=== PATIENT | male | born 1970 | race Caucasian/White ===

== ENCOUNTER → 2017-02-24 | Outpatient (CLI) | payer OTHER ==
[2017-02-24 13:33] LABS: BLOOD UREA NITROGEN 18 mg/dl (7-18); BUN/CREATININE RATIO 20.9 (10-20); CALCIUM 8.7 mg/dl (8.5-10.1); CARBON DIOXIDE 24 mmol/L (21-32); CHLORIDE 106 mmol/L (98-107); CREATININE 0.85 mg/dl (0.60-1.40); GLUCOSE 146 mg/dl (70-99); SODIUM 139 mmol/L (136-145)
[2017-02-24 14:41] LABS: ESTIMATED AVERAGE GLUCOSE 171 mg/dl; HA1C FLAG Normal (Normal)
== END | disposition home or self-care (01) ==
LOC: C.LAB1850 12:16
PROVIDERS: ATTEND Family Medicine
DX: E11.9 Type 2 diabetes mellitus without complications (principal)

== ENCOUNTER → 2017-10-01 | Outpatient (CLI) | payer OTHER ==
[2017-10-01 13:51] LABS: HEMOGLOBIN A1C 7.8 % (4.5-5.6)
[2017-10-01 15:47] LABS: ALT/SGPT 33 U/L (12-78); BLOOD UREA NITROGEN 15 mg/dl (7-18); CARBON DIOXIDE 25 mmol/L (21-32); CREATININE 0.93 mg/dl (0.60-1.40); GLUCOSE 147 mg/dl (70-99); POTASSIUM 3.9 mmol/L (3.5-5.1); SODIUM 136 mmol/L (136-145)
[2017-10-01 15:50] LABS: CHOLESTEROL 203 mg/dl (0-200); LDL CHOLESTEROL CALCULATED 144 mg/dl
== END | disposition home or self-care (01) ==
LOC: C.LABBC 11:38
PROVIDERS: ATTEND Family Medicine
DX: E11.9 Type 2 diabetes mellitus without complications (principal)

== ENCOUNTER 2021-05-29 08:52 | Inpatient (IN) ==
[2021-05-29] MEDS ORDERED: ALBUT/IPRATROP 3MG/0.5MG NEB 3 ML VIAL INH STA (11:13)
--- NOTE | 2021-05-29 11:23 | Emergency Department Note ---
Impression & Plan Hypoxia, SOB (shortness of breath), Pneumonia, COVID-19 ED Provider Note NAME: LOUIE WEST AGE: 51 SEX: M : 1970 ARRIVES VIA: Walk-In INFORMANT: [Patient] ED PROVIDER(S): [Rahul Hill MD] CHIEF COMPLAINT: Shortness of breath HISTORY OF PRESENT ILLNESS: The patient is a 51-year-old male who has felt short of breath for 4 days. Today, he felt even worse. He cannot sleep he feels so winded. He is weak. He has developed a low-grade fever. He has had some diarrhea although, he took a stool softener and the diarrhea started after. There has been no vomiting, no urinary complaints. The patient states that he was placed on oxygen when he arrived and he feels better. The patient is not vaccinated against COVID-19. He has no known Covid exposures . He states he has no history of heart or lung disease. REVIEW OF SYSTEMS: See HPI for pertinent positives and negatives. A total of ten systems were reviewed and were otherwise negative. PMHx/PSHx: See Below SOCIAL HISTORY: See Below. PHYSICAL EXAM: GENERAL: Patient is in no acute distress. HEENT: No acute trauma, normocephalic atraumatic, mucous membranes moist, no nasal congestion, no scleral icterus. NECK: No stridor, no adenopathy, no meningismus, trachea is midline. LUNGS: Crackles at both lung bases, no obvious respiratory distress. No wheezing. HEART: Without murmurs gallops or rubs, regular rate and rhythm. ABDOMEN: Soft, nontender, bowel sounds positive, no hernias, no peritonitis. EXTREMITIES: No cyanosis or edema, full range of motion of all the joints with out pain or difficulty, no signs for acute trauma. NEUROLOGIC: Oriented x 3, no acute motor or sensory deficits, no focal weakness. SKIN: No rash, no jaundice, no diaphoresis. DIFFERENTIAL DIAGNOSIS: Reactive airway disease, pneumonia, pneumothorax, COPD, COVID-19, CHF, infec tion, cardiac ischemia, pulmonary embolism, bronchitis, musculoskeletal, gastrointestinal, as well as other pathologies. EMERGENCY DEPARTMENT COURSE/PROCEDURES: ECG: Indication was shortness of breath. The ECG shows a normal sinus rhythm with a rate of 95. There is an incomplete right bundle branch block. There is some nonspecific ST change. No ST elevation, no PVCs. QTC was 482. Continuous Cardiac Monitoring: An order was placed for continuous cardiac monitoring. The monitor shows a rate of 84 with normal sinus rhythm. Critical Care Note: I have personally spent 48 minutes of critical care time in the direct management of this patient. This includes bedside care, interpretation of diagnostic studies, and testing, discussion with consultants, patient, and family members, and other required patient management activities. This 48 minutes is in excess of all separately billable procedures. MEDICAL DECISION MAKING: There is no leukocytosis or anemia. There is a normal platelet count. No coagulopathy. Sodium and potassium were both slightly low. No kidney failure. Lactic acid level was not elevated making severe sepsis less likely. No concerning liver enzyme elevation. BNP was not elevated. ECG shows a sinus rhythm, no acute ischemia. Cardiac enzyme testing x1 is not consistent with acute cardiac injury. Covid test returned positive. Chest film shows a bilateral pneumonia consistent with a viral process. The patient was hypoxic and short of breath. He was placed on oxygen and this did increase his pulse ox. The patient was given a DuoNeb, IV Decadron. He is currently resting comfortably. The patient has hypoxia. He has Covid pneumonia. Given his oxygen requirement, a hospital stay is warranted. I spoke to the patient and case management. The on-call hospitalist has been consulted. Past Med/Surg History Medical History Diabetes mellitus, type 2 NIDDM DM2 (diabetes mellitus, type 2) Hyperlipidemia Hypertension Obesity Umbilical hernia, incarcerated Surgical History H/O umbilical hernia repair (08/24/19) Open Umbilical Hernia Repair - Dr. Trinh 08/24/19 No history of previous surgery Family History Mother Diabetes Hypertension Family history of reaction to anesthesia 20 YRS AGO IN [facility]-MOTHER HAD GB SURGERY-DID NOT SURVIVE-NO OTHER INFORMATION PER PT/SPOUSE-PT HAS NO PREVIOUS SURGERY/ANESTHESIA Father Heart disease Other Family history unknown Social History Smoking Status: Never smoker Second Hand Exposure: No; Hx Alcohol Use: No Hx Substance Use: No Preferred Language: Irish Communication Ability: Impaired Visual Impairment: No Limitations Hearing Ability: Normal Auto Washer Required: Yes and No Beliefs That Will Affect Care: None marital status: Current Living Situation: Spouse current occupational status: employed current occupation: construction Feels Safe at Home: Yes Childhood Exposure to Second-Hand Smoke: No Dental Care, Regularly: Yes Physical Activity Frequency: Daily Seatbelt Use: always Sunscreen Use: No Assistive Devices: None Allergies Allergies Allergy/AdvReac Type Severity Reaction Status Date / Time acetaminophen AdvReac Unknown SOB Verified 05/29/21 11:39 Home Meds Home Medications Medication Instructions Recorded Confirmed acetaminophen 500 mg tablet 500 mg PO Q6H PRN 05/29/21 05/29/21 (Tylenol Extra Strength) ascorbic acid (vitamin C) 250 mg 0 mg PO DAILY 05/29/21 05/29/21 tablet (Vitamin C) multivitamin 1 tab PO DAILY 05/29/21 05/29/21 Previous Rx's Medication Instructions Recorded Diabetic Shoes #1 ea 08/29/19 blood sugar diagnostic (OneTouch #200 ea 06/12/20 Ultra Blue Test Strip) metformin 500 mg tablet,extended 500 mg PO QPM #30 tab 06/12/20 release 24 hr glipizide 10 mg tablet 10 mg PO DAILY #90 tab 07/12/20 simvastatin 20 mg tablet 20 mg PO QPM #90 tab 07/12/20 Results & Data (ED) Vital Signs Vital Signs - 24 hr 05/29/21 09:01 05/29/21 09:08 05/29/21 11:13 Temperature 36.6 C Temperature Source Oral Pulse Rate 99 H Pulse Rate [Right Finger] Pulse Rate from SpO2 Sensor Respiratory Rate 20 Respiratory Effort / Characteristics SOB on Exertion Blood Pressure 124/83 Blood Pressure Mean 96 Pulse Oximetry 90 89 L Oxygen Delivery Method Room Air Nasal Cannula Nasal Cannula Oxygen Flow Rate 2 2 Sepsis Recent Fever Within 48 Hours No Sepsis New/Unexplained Change in Mental Status No Sepsis Action Taken by Nursing No Action Required Fraction of Inspired Oxygen - Titration 2 Pulse Oximetry Post Tiitration 91 05/29/21 11:30 05/29/21 11:55 05/29/21 12:00 Temperature Temperature Source Pulse Rate 88 92 H Pulse Rate [Right Finger] 86 Pulse Rate from SpO2 Sensor 88 92 H Respiratory Rate 20 14 15 Respiratory Effort / Characteristics Non-Labored Spontaneous Blood Pressure 119/80 122/84 Blood Pressure Mean 93 96 Pulse Oximetry 93 94 95 Oxygen Delivery Method Nasal Cannula Oxygen Flow Rate 4 Sepsis Recent Fever Within 48 Hours Sepsis New/Unexplained Change in Mental Status Sepsis Action Taken by Nursing Fraction of Inspired Oxygen - Titration Pulse Oximetry Post Tiitration 05/29/21 12:30 05/29/21 13:00 05/29/21 13:30 Temperature Temperature Source Pulse Rate 87 83 84 Pulse Rate [Right Finger] Pulse Rate from SpO2 Sensor 88 84 84 Respiratory Rate 13 23 27 H Respiratory Effort / Characteristics Blood Pressure 114/76 112/79 124/85 Blood Pressure Mean 88 90 98 Pulse Oximetry 90 92 93 Oxygen Delivery Method Oxygen Flow Rate Sepsis Recent Fever Within 48 Hours Sepsis New/Unexplained Change in Mental Status Sepsis Action Taken by Nursing Fraction of Inspired Oxygen - Titration Pulse Oximetry Post Tiitration Home Medications Current Medication List: was personally reviewed by me Laboratory Data Attestation: I reviewed the patient's lab results. Result diagrams: 05/29/21 12:22 05/29/21 12:22 Lab Results 05/29/21 05/29/21 05/29/21 Range/Units 12:22 12:22 12:22 WBC 5.61 (4.8-10.8) K/uL RBC 5.23 (4.7-6.1) M/uL Hgb 15.4 (14.0-18.0) g/dL Hct 44.9 (42-52) % MCV 85.9 (80-100) fL MCH 29.4 (25-34) pg MCHC 34.3 (32-36) g/dL RDW Std Deviation 39.5 (36.4-46.3) fL RDW Coeff of Nabila 12.5 (11.5-14.5) % Plt Count 309 (130-400) K/uL MPV 9.3 (7.4-10.4) fL Immature Gran % (Auto) 0.2 % Neut % (Auto) 57.3 % Lymph % (Auto) 31.4 % [place] % (Auto) 10.9 % Eos % (Auto) 0.0 % Baso % (Auto) 0.2 % Neut # (Auto) 3.22 (1.4-6.5) K/uL Lymph # (Auto) 1.76 (1.2-3.4) K/uL [place] # (Auto) 0.61 H (0.11-0.59) K/uL Eos # (Auto) 0.00 (0-0.5) K/uL Baso # (Auto) 0.01 (0-0.2) K/uL Immature Gran # (Auto) 0.01 (0.00-0.02) K/uL PT 10.5 (9.0-12.0) Seconds INR 1.0 (0.9-1.1) APTT 29.6 (21.0-31.0) Seconds PTT Ratio 1.1 Sodium 133 L (136-145) mmol/L Potassium 3.4 L (3.5-5.1) mmol/L Chloride 98 (98-107) mmol/L Carbon Dioxide 27 (21-32) mmol/L Anion Gap 8.0 (3-11) BUN 9 (7-18) mg/dl Creatinine 0.89 (0.6-1.4) mg/dl Est Cr Clr Drug Dosing 121.6 ml/min Est GFR ( Amer) 113.9 ml/min Est GFR (Non-Af Amer) 98.3 ml/min BUN/Creatinine Ratio 9.7 L (10-20) Glucose 178 H (70-99) mg/dl Lactate (0.4-2.0) mmol/L Calcium 8.9 (8.5-10.1) mg/dl Magnesium 2.5 H (1.8-2.4) mg/dl Total Bilirubin 0.6 (0.2-1) mg/dl AST 29 (15-37) U/L ALT 31 (12-78) U/L Alkaline Phosphatase 63 (45-117) U/L Troponin I < 0.015 (0-0.045) ng/ml NT-Pro-B Natriuret Pep 52 (0-900) pg/ml Total Protein 8.4 H (6.4-8.2) gm/dl Albumin 3.1 L (3.4-5.0) gm/dl Globulin 5.3 H (2.5-4.0) gm/dl Albumin/Globulin Ratio 0.6 L (0.9-2) COVID-19 Eval Order SARS-CoV-2 (PCR) (Negative) 05/29/21 05/29/21 05/29/21 Range/Units 12:22 12:22 12:22 WBC (4.8-10.8) K/uL RBC (4.7-6.1) M/uL Hgb (14.0-18.0) g/dL Hct (42-52) % MCV (80-100) fL MCH (25-34) pg MCHC (32-36) g/dL RDW Std Deviation (36.4-46.3) fL RDW Coeff of Nabila (11.5-14.5) % Plt Count (130-400) K/uL MPV (7.4-10.4) fL Immature Gran % (Auto) % Neut % (Auto) % Lymph % (Auto) % [place] % (Auto) % Eos % (Auto) % Baso % (Auto) % Neut # (Auto) (1.4-6.5) K/uL Lymph # (Auto) (1.2-3.4) K/uL [place] # (Auto) (0.11-0.59) K/uL Eos # (Auto) (0-0.5) K/uL Baso # (Auto) (0-0.2) K/uL Immature Gran # (Auto) (0.00-0.02) K/uL PT (9.0-12.0) Seconds INR (0.9-1.1) APTT (21.0-31.0) Seconds PTT Ratio Sodium (136-145) mmol/L Potassium (3.5-5.1) mmol/L Chloride (98-107) mmol/L Carbon Dioxide (21-32) mmol/L Anion Gap (3-11) BUN (7-18) mg/dl Creatinine (0.6-1.4) mg/dl Est Cr Clr Drug Dosing ml/min Est GFR ( Amer) ml/min Est GFR (Non-Af Amer) ml/min BUN/Creatinine Ratio (10-20) Glucose (70-99) mg/dl Lactate 1.6 (0.4-2.0) mmol/L Calcium (8.5-10.1) mg/dl Magnesium (1.8-2.4) mg/dl Total Bilirubin (0.2-1) mg/dl AST (15-37) U/L ALT (12-78) U/L Alkaline Phosphatase (45-117) U/L Troponin I (0-0.045) ng/ml NT-Pro-B Natriuret Pep (0-900) pg/ml Total Protein (6.4-8.2) gm/dl Albumin (3.4-5.0) gm/dl Globulin (2.5-4.0) gm/dl Albumin/Globulin Ratio (0.9-2) COVID-19 Eval Order Covid19 at [facility] SARS-CoV-2 (PCR) POSITIVE A* (Negative) Administered Medications Discontinued Medications Albuterol (Albut/Ipratrop 3mg/0.5mg Neb 3 Ml Vial) 3 ml INH NOW STA Stop: 05/29/21 11:14 Last Admin: 05/29/21 11:54 Dose: 3 ml Documented by: [id number] Dexamethasone Sodium Phosphate (DexamethasonePf 10 Mg/Ml Vial) 6 mg IV NOW ONE Stop: 05/29/21 14:37 Last Admin: 05/29/21 14:47 Dose: 6 mg Documented by: [id number] Imaging Data Radiologist's Impression: Chest X-Ray 05/29/21 11:13 XR chest 1V portable HISTORY: 51 years-old Male SOB acute shortness breath with weakness COMPARISON: None TECHNIQUE: Portable AP view of the chest FINDINGS: Cardiac silhouette is upper limits of normal in size. A vascular congestion with interstitial coarsening. Bibasilar and lateral left midlung predominant ill-defined airspace opacities. Lungs are mildly hypoinflated. No pneumothorax or large pleural effusion. No acute fracture. IMPRESSION: Bilateral mixed interstitial and alveolar opacities are suggestive of multifocal pneumonia. ACT 112: Negative or not required by law. The above report was generated using voice recognition software. It may contain grammatical, syntax or spelling errors. Electronically signed by: Boni Del Castillo M.D. 05/29/2021 11:43 AM Discharge Plan Visit Data Chief Complaint: Weakness Stated Complaint: WEAKNESS,SLIGHT FEVER ED Provider: Rahul Hill Discharge Problem: Hypoxia, SOB (shortness of breath), Pneumonia, COVID-19 Patient Disposition: Admitted As Inpatient Condition: Fair Forms Stand Alone Forms: Open [employer] Lab Prescriptions Prescriptions: No Action (DME) OneTouch Ultra Blue Test Strip Strip See Dose Instructions .ROUTE .MEDSUPPLY Qty: 200 RF: 1 metformin 500 mg tablet extended release 24 hr 500 mg PO QPM Qty: 30 RF: 5 glipizide 10 mg tablet 10 mg PO DAILY Qty: 90 RF: 1 simvastatin 20 mg tablet 20 mg PO QPM Qty: 90 RF: 1 (DME) Diabetic Shoes Misc See Rx Instructions .ROUTE .MEDSUPPLY Qty: 1 RF: 0 multivitamin Tablet 1 tab PO DAILY RF: 0 acetaminophen [Tylenol Extra Strength] 500 mg Tablet 500 mg PO Q6H PRN (Reason: Pain) RF: 0 ascorbic acid (vitamin C) [Vitamin C] 250 mg Tablet 0 mg PO DAILY RF: 0 Referrals Referrals: Carole Pritchard MD [Primary Care Provider] -
--- NOTE | 2021-05-29 11:44 | XRay Report ---
XR chest 1V portable HISTORY: 51 years-old Male SOB acute shortness breath with weakness COMPARISON: None TECHNIQUE: Portable AP view of the chest FINDINGS: Cardiac silhouette is upper limits of normal in size. A vascular congestion with interstitial coarsening. Bibasilar and lateral left midlung predominant il l-defined airspace opacities. Lungs are mildly hypoinflated. No pneumothorax or large pleural effusio n. No acute fracture. IMPRESSION: Bilateral mixed interstitial and alveolar opacities are suggestive of multifocal pneumoni a. ACT 112: Negative or not required by law. The above report was generated using voice recognition software. It may contain grammatical, syntax o r spelling errors. Electronically signed by: Boni Del Castillo M.D. 05/29/2021 11:43 AM
[2021-05-29 12:39] LABS: Basophils # (auto) 0.01 K/uL (0-0.2); Basophils % (auto) 0.2 %; Hematocrit (blood only) 44.9 % (42-52); Hemoglobin 15.4 g/dL (14.0-18.0); Immature Granulocytes # (auto) 0.01 K/uL (0.00-0.02); Immature Granulocytes % (auto) 0.2 %; Lymphocytes # (auto) 1.76 K/uL (1.2-3.4); Lymphocytes % (auto) 31.4 %; Mean Corpuscular Hemoglobin 29.4 pg (25-34); Mean Corpuscular Hgb Conc 34.3 g/dL (32-36); Mean Corpuscular Volume 85.9 fL (80-100); Mean Platelet Volume 9.3 fL (7.4-10.4); Monocytes # (auto) 0.61 K/uL (0.11-0.59); Monocytes % (auto) 10.9 %; Neutrophils # (auto) 3.22 K/uL (1.4-6.5); Neutrophils % (auto) 57.3 %; Platelet Count 309 K/uL (130-400); RDW Coefficient of Variation 12.5 % (11.5-14.5); RDW Standard Deviation 39.5 fL (36.4-46.3); Red Blood Count 5.23 M/uL (4.7-6.1); White Blood Count 5.61 K/uL (4.8-10.8)
[2021-05-29 12:52] LABS: Partial Thromboplastin Ratio 1.1; Partial Thromboplastin Time 29.6 Seconds (21.0-31.0); Prothrombin Time 10.5 Seconds (9.0-12.0)
[2021-05-29 12:55] LABS: Alanine Aminotransferase 31 U/L (12-78); Albumin Level 3.1 gm/dl (3.4-5.0); Aspartate Aminotransferase 29 U/L (15-37); BUN Creatinine Ratio 9.7 (10-20); Blood Urea Nitrogen 9 mg/dl (7-18); Calcium 8.9 mg/dl (8.5-10.1); Carbon Dioxide 27 mmol/L (21-32); Chloride 98 mmol/L (98-107); Creatinine Clr Calc Pharmacy 121.6 ml/min; Est GFR (African American) 113.9 ml/min; Est GFR (Non-African American) 98.3 ml/min; Glucose 178 mg/dl (70-99); Magnesium 2.5 mg/dl (1.8-2.4); Potassium 3.4 mmol/L (3.5-5.1); Sodium 133 mmol/L (136-145)
[2021-05-29 12:59] LABS: Albumin Globulin Ratio 0.6 (0.9-2); Alkaline Phosphatase 63 U/L (45-117); Bilirubin,Total 0.6 mg/dl (0.2-1); Globulin 5.3 gm/dl (2.5-4.0); NT Pro B Type Natriuretic Pept 52 pg/ml (0-900); Total Protein 8.4 gm/dl (6.4-8.2); Troponin I < 0.015 ng/ml (0-0.045)
[2021-05-29] MEDS ORDERED: dexAMETHasone**PF** 10 MG/ML VIAL IV ONE (14:36)
[2021-05-29] MEDS ORDERED: POTASSIUM CHLORIDE CRTAB 20 MEQ TABCR PO SCH (15:20)
--- NOTE | 2021-05-29 15:31 | History & Physical Report ---
Date of Service May 29, 2021 Assessment & Plan (1) COVID-19: Plan: 51yo male presenting with Covid-19 PNA, hypoxic to 89% on room air. Patient is unvaccinated. Presently afebrile, HD stable, NAD. Saturating well on 2L NC. Laboratory studies are largely unremarkable, Hr=383. BNP is normal at 52. -Admit to medical -Maintain isolation precautions for Covid-19 -Check CRP, LDH, Ferritin, Fibrinogen and Procalcitonin -Continue Dexamethasone 6mg IV daily - patient received first dose in ER -Patient is on day 10 of illness - would not benefit from Remdesivir therapy at this christopher -Lovenox 40mg BID -Albuterol HFA PRN SOB (2) DM2 (diabetes mellitus, type 2): Plan: MVK=276. Last HgbA1c = 9.2. He is on oral therapy with Metformin and Glipizide -Hold oral agents -Lantus 10u BID -ISS -Goal blood sugar 100 - 140 (3) Hyperlipidemia: Plan: Chronic. Stable -Continue Simvastatin 20mg po daily Plan: F/E/N - heplock, Kdur 40mEq x 1 dose with repeat chemistry in AM, CC/AHA diet as tolerated Ppx - Lovenox 40mg BID Code - Full Dispo -Admit to medical, Covid-19 unit History of Present Illness Chief Complaint: Covid-19 Primary Care Provider: Carole Pritchard MD José Ricci is a 51yo male presenting with Covid-19 infection. Patient began developing mild symptoms approximately 10 days ago - fever, NEELY and body aches. He is unvaccinated. Uncertain of exposure to Covid-19. Upon arrival he was saturating 89% on room air. Presently with no complaints. He denies chest pain, palpitations, abdominal pain, nausea, vomiting, diarrhea or constipation. ER course: Dexamethasone 6mg IV, Albuterol neb Allergies Allergy/AdvReac Type Severity Reaction Status Date / Time acetaminophen AdvReac Unknown SOB Verified 05/29/21 11:39 Home Medications Medication Instructions Recorded Confirmed Type Diabetic Shoes #1 ea 08/29/19 05/29/21 Rx blood sugar diagnostic (OneTouch #200 ea 06/12/20 05/29/21 Rx Ultra Blue Test Strip) metformin 500 mg tablet,extended 500 mg PO QPM #30 tab 06/12/20 05/29/21 Rx release 24 hr glipizide 10 mg tablet 10 mg PO DAILY #90 tab 07/12/20 05/29/21 Rx simvastatin 20 mg tablet 20 mg PO QPM #90 tab 07/12/20 05/29/21 Rx acetaminophen 500 mg tablet 500 mg PO Q6H PRN 05/29/21 05/29/21 History (Tylenol Extra Strength) ascorbic acid (vitamin C) 250 mg 0 mg PO DAILY 05/29/21 05/29/21 History tablet (Vitamin C) multivitamin 1 tab PO DAILY 05/29/21 05/29/21 History Past Med/Surg History Medical History Diabetes mellitus, type 2 NIDDM DM2 (diabetes mellitus, type 2) Hyperlipidemia Hypertension Obesity Umbilical hernia, incarcerated Surgical History H/O umbilical hernia repair (08/24/19) Open Umbilical Hernia Repair - Dr. Trinh 08/24/19 No history of previous surgery Family History Mother Diabetes Hypertension Family history of reaction to anesthesia 20 YRS AGO IN [facility]-MOTHER HAD GB SURGERY-DID NOT SURVIVE-NO OTHER INFORMATION PER PT/SPOUSE-PT HAS NO PREVIOUS SURGERY/ANESTHESIA Father Heart disease Other Family history unknown Social History Smoking Status: Never smoker Second Hand Exposure: No; Hx Alcohol Use: No Hx Substance Use: No Preferred Language: Mexican Communication Ability: Impaired Visual Impairment: No Limitations Hearing Ability: Normal Epitaxial Reactor Operator Required: Yes and No Beliefs That Will Affect Care: None marital status: Current Living Situation: Spouse current occupational status: employed current occupation: construction Feels Safe at Home: Yes Childhood Exposure to Second-Hand Smoke: No Dental Care, Regularly: Yes Physical Activity Frequency: Daily Seatbelt Use: always Sunscreen Use: No Assistive Devices: None Review of Systems Review of Systems: All systems reviewed & are unremarkable except as noted in HPI & below Physical Exam Physical Exam: General: patient resting comfortably, NAD, non-toxic in appearance, AA&O x 4 Skin: warm, dry, intact, no rashes or lesions HEENT: NC/AT, PERRL, EOMI, anicteric sclera, conjunctiva without injection, external ear normal to inspection and nontender, nares patent, moist mucus membranes, dentition intact, no oropharyngeal lesions, neck supple, trachea midline, no LAD, no thyromegaly, no JVD Heart: +S1/S2, regular, no m/r/g Lungs: equal air entry bilaterally, +faint end-inspiratory crackles in bilateral lung steven Abd: +BS, soft, NT/ND, no masses/organomegaly/ascites Ext: warm, 2+ pulses in UE/LE bilaterally, no clubbing/cyanosis or edema Neuro: nonfocal, patient AA&O x 4, speech intact, no facial droop, moving all extremities on command with equal strength 5/5 Results & Data Results & Data ([place]) Vital Signs (Past 12 Hours) Vital Signs Temp Pulse Pulse Resp BP Pulse Ox 05/29/21 13:30 84 27 H 124/85 93 05/29/21 13:00 83 23 112/79 92 05/29/21 12:30 87 13 114/76 90 05/29/21 12:00 92 H 15 122/84 95 05/29/21 11:55 86 14 94 05/29/21 11:30 88 20 119/80 93 05/29/21 11:13 89 L 05/29/21 09:01 36.6 C 99 H 20 124/83 90 Laboratory Results Laboratory Results WBC 5.61 K/uL (4.8-10.8) 05/29/21 12:22 RBC 5.23 M/uL (4.7-6.1) 05/29/21 12:22 Hgb 15.4 g/dL (14.0-18.0) 05/29/21 12:22 Hct 44.9 % (42-52) 05/29/21 12:22 MCV 85.9 fL (80-100) 05/29/21 12:22 MCH 29.4 pg (25-34) 05/29/21 12:22 MCHC 34.3 g/dL (32-36) 05/29/21 12:22 RDW Std Deviation 39.5 fL (36.4-46.3) 05/29/21 12:22 RDW Coeff of Nabila 12.5 % (11.5-14.5) 05/29/21 12: Plt Count 309 K/uL (130-400) 05/29/21 12: MPV 9.3 fL (7.4-10.4) 05/29/21 12: Immature Gran % (Auto) 0.2 % 05/29/21 12: Neut % (Auto) 57.3 % 05/29/21 12: Lymph % (Auto) 31.4 % 05/29/21 12:22 [place] % (Auto) 10.9 % 05/29/21 12: Eos % (Auto) 0.0 % 05/29/21 12: Baso % (Auto) 0.2 % 05/29/21: Neut # (Auto) 3.22 K/uL (1.4-6.5) 05/29/21 12: Lymph # (Auto) 1.76 K/uL (1.2-3.4) 05/29/21 12: [place] # (Auto) 0.61 K/uL (0.11-0.59) H 05/29/21 12: Eos # (Auto) 0.00 K/uL (0-0.5) 05/29/21 12: Baso # (Auto) 0.01 K/uL (0-0.2) 05/29/21 12: Immature Gran # (Auto) 0.01 K/uL (0.00-0.02) 05/29/21 12: PT 10.5 Seconds (9.0-12.0) 05/29/21 12: INR 1.0 (0.9-1.1) 05/29/21 12: APTT 29.6 Seconds (21.0-31.0) 05/29/21: PTT Ratio 1.1 05/29/21 12: Sodium 133 mmol/L (136-145) L 05/29/21 12:22 Potassium 3.4 mmol/L (3.5-5.1) L 05/29/21 12: Chloride 98 mmol/L (98-107) 05/29/21 12: Carbon Dioxide 27 mmol/L (21-32) 05/29/21 12:22 Anion Gap 8.0 (3-11) 05/29/21 12:22 BUN 9 mg/dl (7-18) 05/29/21 12:22 Creatinine 0.89 mg/dl (0.6-1.4) 05/29/21 12:22 Est Cr Clr Drug Dosing 121.6 ml/min 05/29/21 12:22 Est GFR ( Amer) 113.9 ml/min 05/29/21 12:22 Est GFR (Non-Af Amer) 98.3 ml/min 05/29/21 12:22 BUN/Creatinine Ratio 9.7 (10-20) L 05/29/21 12:22 Glucose 178 mg/dl (70-99) H 05/29/21 12:22 Lactate 1.6 mmol/L (0.4-2.0) 05/29/21 12:22 Calcium 8.9 mg/dl (8.5-10.1) 05/29/21 12:22 Magnesium 2.5 mg/dl (1.8-2.4) H 05/29/21 12:22 Total Bilirubin 0.6 mg/dl (0.2-1) 05/29/21 12:22 AST 29 U/L (15-37) 05/29/21 12:22 ALT 31 U/L (12-78) 05/29/21 12:22 Alkaline Phosphatase 63 U/L (45-117) 05/29/21 12:22 Troponin I < 0.015 ng/ml (0-0.045) 05/29/21 12:22 NT-Pro-B Natriuret Pep 52 pg/ml (0-900) 05/29/21 12:22 Total Protein 8.4 gm/dl (6.4-8.2) H 05/29/21 12:22 Albumin 3.1 gm/dl (3.4-5.0) L 05/29/21 12:22 Globulin 5.3 gm/dl (2.5-4.0) H 05/29/21 12:22 Albumin/Globulin Ratio 0.6 (0.9-2) L 05/29/21 12:22 COVID-19 Eval Order Covid19 at [facility] 05/29/21 12:22 SARS-CoV-2 (PCR) POSITIVE (Negative) A* 05/29/21 12:22 Impressions Chest X-Ray 05/29/21 11:13 XR chest 1V portable HISTORY: 51 years-old Male SOB acute shortness breath with weakness COMPARISON: None TECHNIQUE: Portable AP view of the chest FINDINGS: Cardiac silhouette is upper limits of normal in size. A vascular congestion with interstitial coarsening. Bibasilar and lateral left midlung predominant ill-defined airspace opacities. Lungs are mildly hypoinflated. No pneumothorax or large pleural effusion. No acute fracture. IMPRESSION: Bilateral mixed interstitial and alveolar opacities are suggestive of multifocal pneumonia. ACT 112: Negative or not required by law. The above report was generated using voice recognition software. It may contain grammatical, syntax or spelling errors. Electronically signed by: Boni Del Castillo M.D. 05/29/2021 11:43 AM Code Status & VTE Plan VTE Prophylaxis Plan VTE Prophylaxis will be ordered: Yes PG Care Time/CCT Total # of Minutes Spent Total Time Spent with Patient: Total time spent is greater than 50% in coordination of care (as documented) at patient's floor/unit and/or counseling patient: Coding Level of Care Code 93676 Initial Inpt Care Lvl 2 Diagnoses DM2 (diabetes mellitus, type 2) E11.9 Hyperlipidemia E78.5 COVID-19 U07.1
[2021-05-29] MEDS ORDERED: DEXTROSE 50% 50 ML SYRINGE IV PRN (19:15)
[2021-05-29] MEDS ORDERED: ONDANSETRON INJ 2 MG/ML 2 ML VIAL IV PRN (19:15)
[2021-05-29] MEDS ORDERED: GLUCOSE 10 TABS/TUBE PO PRN (19:15)
[2021-05-29] MEDS ORDERED: ALBUTEROL HFA 8 GM INHALER INH PRN (19:15)
[2021-05-29] MEDS ORDERED: GLUCOSE 40% GEL 15 GM TUBE PO PRN (19:15)
[2021-05-29] MEDS ORDERED: GLUCAGON FOR INJ 1 MG VIAL SQ PRN (19:15)
[2021-05-29] MEDS ORDERED: CARBOHYDRATES FOR HYPOGLYCEMIA PO PRN (19:15)
[2021-05-29] MEDS ORDERED: INSULIN ASPART 100 UNITS/ML 3 ML PEN SC SCH (19:15)
[2021-05-29 22:22] LABS: Fibrinogen 628 mg/dl (184-400)
[2021-05-29] MEDS: INSULIN GLARGINE SOLOSTAR 100 UNITS/ML 3 ML PEN SC SCH (22:42)
[2021-05-29] MEDS: ENOXAPARIN INJ 40 MG/0.4 ML SYR SQ SCH (22:42)
[2021-05-29 22:44] LABS: C Reactive Protein 6.48 mg/dl (0-0.29); Ferritin 657.1 ng/ml (8-388); Phosphorus 4.2 mg/dl (2.5-4.9)
[2021-05-29] MEDS: SIMVASTATIN 20 MG TAB PO SCH (22:44)
[2021-05-29] MEDS: INSULIN ASPART 100 UNITS/ML 3 ML PEN SC SCH (22:45)
--- NOTE | 2021-05-30 06:36 | Electrocardiogram Report ---
Test Reason : Blood Pressure : / mmHG Vent. Rate : 095 BPM Atrial Rate : 095 BPM P-R Int : 170 ms QRS Dur : 102 ms QT Int : 384 ms P-R-T Axes : 027 -35 009 degrees QTc Int : 482 ms Normal sinus rhythm Left axis deviation Incomplete right bundle branch block Prolonged QT Abnormal ECG When compared with ECG of 04-AUG-2019 10:13, Vent. rate has increased BY 32 BPM QRS axis Shifted left Nonspecific T wave abnormality now evident in Anterior leads QT has lengthened Confirmed by Feliberto Jimenez ([id number]) on 05/30/2021 6:35:50 AM Referred By: REFERRED SELF Confirmed By:Feliberto Jimenez
[2021-05-30] MEDS: ENOXAPARIN INJ 40 MG/0.4 ML SYR SQ SCH ×2 (08:33→21:06)
[2021-05-30] MEDS: dexAMETHasone 6 MG in SYRINGE 0 ML IV SCH (08:34)
[2021-05-30] MEDS: INSULIN GLARGINE SOLOSTAR 100 UNITS/ML 3 ML PEN SC SCH ×2 (08:59→21:08)
[2021-05-30] MEDS: INSULIN ASPART 100 UNITS/ML 3 ML PEN SC SCH ×4 (08:59→21:07)
[2021-05-30 09:37] LABS: Hematocrit (blood only) 45.2 % (42-52); Hemoglobin 15.9 g/dL (14.0-18.0); Immature Granulocytes # (auto) 0.01 K/uL (0.00-0.02); Immature Granulocytes % (auto) 0.3 %; Lymphocytes % (auto) 30.8 %; Mean Corpuscular Hgb Conc 35.2 g/dL (32-36); Mean Corpuscular Volume 85.3 fL (80-100); Mean Platelet Volume 9.5 fL (7.4-10.4); Monocytes # (auto) 0.47 K/uL (0.11-0.59); Monocytes % (auto) 12.1 %; Neutrophils # (auto) 2.21 K/uL (1.4-6.5); Neutrophils % (auto) 56.8 %; Platelet Count 331 K/uL (130-400); RDW Coefficient of Variation 12.8 % (11.5-14.5); RDW Standard Deviation 39.2 fL (36.4-46.3); White Blood Count 3.89 K/uL (4.8-10.8)
[2021-05-30 09:47] LABS: Estimated Average Glucose 260 mg/dl; Hemoglobin A1C 10.7 % (4.5-5.6)
[2021-05-30 10:09] LABS: BUN Creatinine Ratio 20.3 (10-20); Calcium 9.2 mg/dl (8.5-10.1); Creatinine Clr Calc Pharmacy 129.9 ml/min; Est GFR (African American) 117.8 ml/min; Est GFR (Non-African American) 101.7 ml/min
[2021-05-30] MEDS ORDERED: FUROSEMIDE 20 MG in SYRINGE 0 ML IV ONE (14:24)
[2021-05-30] MEDS ORDERED: FUROSEMIDE 40 MG/4 ML VIAL IV ONE (14:45)
[2021-05-30] MEDS: SIMVASTATIN 20 MG TAB PO SCH (21:06)
--- NOTE | 2021-05-30 22:31 | Hospitalist Progress Note ---
Date of Service May 30, 2021 Assessment & Plan (1) COVID-19: Plan: 51yo male presenting with Covid-19 PNA, hypoxic to 89% on room air. Patient is unvaccinated dexamethasone 6mg IV daily, day 2 give Lasix 20mg IV since he has crackles, appears volume overloaded eating well discussed with him laying prone or on his side for improvement in oxygen levels hoping to get him out after the weekend but warned him he might get worse before getting better -Lovenox 40mg BID -Albuterol HFA PRN SOB (2) Hypoxia: Plan: acute hypoxic respiratory failure, due to COVID 19 pneumonia on 3L, wean as tolerated, give Lasix 20mg IV to keep lungs dry (3) DM2 (diabetes mellitus, type 2): Plan: [id number]=[id number]. Last HgbA1c = 9.2. He is on oral therapy with Metformin and Glipizide hyperglycemia, increase Lantus to 15 BID and tighten Novolog pharmacy consulted (4) Hyperlipidemia: Plan: Chronic. Stable -Continue Simvastatin 20mg po daily (5) Pneumonia: Plan: multifocal, due to COVID 19 Plan: F/E/N - heplock Ppx - Lovenox 40mg BID Code - Full Dispo -Admit to medical, Covid-19 unit Admission and Anticipated Discharge Date Admission Date: May 29, 2021 Subjective patient laying in bed, diaphoretic, not in distress taking very deep breaths, can reach 2500cc on incentive spirometer no fever/chills, + dyspnea on exertion, states he feels better since admission he is eating and drinking well has crackles in bases, will give lasix only on 3L today, reviewed chart and labs from admission discussed that he will likely be here over the weekend his was on face time while I was in the room Review of Systems Review of Systems: All systems reviewed & are unremarkable except as noted in Subjective Constitutional: + sweats and + fatigue; no fever, no chills and no weakness Respiratory: + cough, + dyspnea and + dyspnea on exertion Cardiovascular: no chest pain Gastrointestinal: + diarrhea/loose stools; no abdominal pain, no nausea, no vomiting and no constipation Physical Exam Physical Exam: General: well developed, well nourished, no acute distress, ill appearing, diaphoretic Neck: supple, trachea midline, normal thyroid Lungs: crackles in bases bilaterally, slightly tachypnic, no accessory muscle use, no distress Heart: regular S1 and S2, no murmur, peripheral pulses normal, capillary refill normal, no edema Abdomen: soft, NT, ND, + BS, no hepatomegaly, normal to percussion Extremities: normal in appearance, no cyanosis, no petechiae, strength is 5/5 bilaterally Neuro: awake, cooperative, moves all extremities, no focal motor deficits, CN II-XII intact, sensation in extremities intact, normal speech Skin: warm, dry, no rash, normal turgor Psych: Awake, alert oriented x 3, euthymic affect Results & Data Results & Data ([facility]) Vital Signs (Past 12 Hours) Vital Signs Temp Pulse Resp BP Pulse Ox 05/30/21 20:30 36.7 C 82 18 121/82 92 05/30/21 15:26 36.6 C 86 18 122/79 94 Laboratory Results Laboratory Results - last 24 hr 05/29/21 05/29/21 05/30/21 21:42 21:42 08:32 WBC RBC Hgb Hct MCV MCH MCHC RDW Std Deviation RDW Coeff of Nabila Plt Count MPV Immature Gran % (Auto) Neut % (Auto) Lymph % (Auto) [place] % (Auto) Eos % (Auto) Baso % (Auto) Neut # (Auto) Lymph # (Auto) [place] # (Auto) Eos # (Auto) Baso # (Auto) Immature Gran # (Auto) Sodium Potassium Chloride Carbon Dioxide Anion Gap BUN Creatinine Est Cr Clr Drug Dosing Est GFR ( Amer) Est GFR (Non-Af Amer) BUN/Creatinine Ratio Glucose POC Glucose 250 H Estimat Average Glucose Hemoglobin A1c Calcium Phosphorus 4.2 Ferritin 657.1 H Lactate Dehydrogenase 300 H C-Reactive Protein 6.48 H 05/30/21 05/30/21 05/30/21 09:04 09:04 09:04 WBC 3.89 L RBC 5.30 Hgb 15.9 Hct 45.2 MCV 85.3 MCH 30.0 MCHC 35.2 RDW Std Deviation 39.2 RDW Coeff of Nabila 12.8 Plt Count 331 MPV 9.5 Immature Gran % (Auto) 0.3 Neut % (Auto) 56.8 Lymph % (Auto) 30.8 [place] % (Auto) 12.1 Eos % (Auto) 0.0 Baso % (Auto) 0.0 Neut # (Auto) 2.21 Lymph # (Auto) 1.20 [place] # (Auto) 0.47 Eos # (Auto) 0.00 Baso # (Auto) 0.00 Immature Gran # (Auto) 0.01 Sodium 137 Potassium 4.0 D Chloride 105 Carbon Dioxide 26 Anion Gap 6.0 BUN 17 D Creatinine 0.82 Est Cr Clr Drug Dosing 129.9 Est GFR ( Amer) 117.8 Est GFR (Non-Af Amer) 101.7 BUN/Creatinine Ratio 20.3 H Glucose 277 H POC Glucose Estimat Average Glucose 260 Hemoglobin A1c 10.7 H Calcium 9.2 Phosphorus Ferritin Lactate Dehydrogenase C-Reactive Protein 05/30/21 05/30/21 05/30/21 11:43 16:49 20:27 WBC RBC Hgb Hct MCV MCH MCHC RDW Std Deviation RDW Coeff of Nabila Plt Count MPV Immature Gran % (Auto) Neut % (Auto) Lymph % (Auto) [place] % (Auto) Eos % (Auto) Baso % (Auto) Neut # (Auto) Lymph # (Auto) [place] # (Auto) Eos # (Auto) Baso # (Auto) Immature Gran # (Auto) Sodium Potassium Chloride Carbon Dioxide Anion Gap BUN Creatinine Est Cr Clr Drug Dosing Est GFR ( Amer) Est GFR (Non-Af Amer) BUN/Creatinine Ratio Glucose POC Glucose 282 H 322 H* 310 H* Estimat Average Glucose Hemoglobin A1c Calcium Phosphorus Ferritin Lactate Dehydrogenase C-Reactive Protein 05/30/21 20:29 WBC RBC Hgb Hct MCV MCH MCHC RDW Std Deviation RDW Coeff of Nabila Plt Count MPV Immature Gran % (Auto) Neut % (Auto) Lymph % (Auto) [place] % (Auto) Eos % (Auto) Baso % (Auto) Neut # (Auto) Lymph # (Auto) [place] # (Auto) Eos # (Auto) Baso # (Auto) Immature Gran # (Auto) Sodium Potassium Chloride Carbon Dioxide Anion Gap BUN Creatinine Est Cr Clr Drug Dosing Est GFR ( Amer) Est GFR (Non-Af Amer) BUN/Creatinine Ratio Glucose POC Glucose 310 H* Estimat Average Glucose Hemoglobin A1c Calcium Phosphorus Ferritin Lactate Dehydrogenase C-Reactive Protein Medications Administered Current Inpatient Medications Albuterol (Albuterol Hfa 8 Gm Inhaler) 2 puffs INH Q4H PRN PRN Reason: shortness of breath Stop: 06/28/21 19:14 Dextrose (Dextrose 50% 50 Ml Syringe) 25 - 50 ml IV UD PRN; Protocol PRN Reason: Hypoglycemia Protocol Stop: 06/28/21 19:14 Enoxaparin Sodium (Enoxaparin Inj 40 Mg/0.4 Ml Syr) 40 mg SQ Q12H JONATHAN Stop: 06/28/21 19:59 Last Admin: 05/30/21 21:06 Dose: 40 mg Documented by: Glucagon (Glucagon For Inj 1 Mg Vial) 1 mg SQ UD PRN; Protocol PRN Reason: Hypoglycemia Protocol Stop: 06/28/21 19:14 Glucose (Glucose 10 Tabs/Tube) 4 - 8 tabs PO UD PRN; Protocol PRN Reason: Hypoglycemia Protocol Stop: 06/28/21 19:14 Glucose (Glucose 40% Gel 15 Gm Tube) 15 - 30 gm PO UD PRN; Protocol PRN Reason: Hypoglycemia Protocol Stop: 06/28/21 19:14 Dexamethasone 6 mg/ Syringe 1.5 mls @ 1 mls/min IV Q24H JONATHAN Stop: 06/29/21 08:59 Last Admin: 05/30/21 08:34 Dose: 1 mls/min Documented by: Furosemide 20 mg/ Syringe 2 mls @ 4 mls/min IV QAM [facility] Stop: 06/30/21 08:59 Insulin Aspart (Insulin Aspart 100 Units/Ml 3 Ml Pen) 0 units SC ACHS [facility] Stop: 06/28/21 21:59 Last Admin: 05/30/21 21:07 Dose: 7 units Documented by: Insulin Glargine (Insulin Glargine Solostar 100 Units/Ml 3 Ml Pen) 15 units SC BID JONATHAN Stop: 06/29/21 20:59 Last Admin: 05/30/21 21:08 Dose: 15 units Documented by: Miscellaneous (Carbohydrates For Hypoglycemia ) 15 - 30 gm PO UD PRN PRN Reason: Hypoglycemia Protocol Stop: 06/28/21 19:14 Ondansetron HCl (Ondansetron Inj 2 Mg/Ml 2 Ml Vial) 4 mg IV Q6H PRN PRN Reason: Nausea Stop: 06/28/21 19:14 Simvastatin (Simvastatin 20 Mg Tab) 20 mg PO QPM JONATHAN Stop: 06/28/21 20:59 Last Admin: 05/30/21 21:06 Dose: 20 mg Documented by: PG Care Time/CCT Total # of Minutes Spent Total Time Spent with Patient: Total time spent is greater than 50% in coordination of care (as documented) at patient's floor/unit and/or counseling patient: Coding Level of Care Code 47321 Subseq Hosp Care Lvl 3 Diagnoses COVID-19 U07.1 DM2 (diabetes mellitus, type 2) E11.9 Hyperlipidemia E78.5 Hypoxia R09.02 Pneumonia J18.9 Laterality: bilateral Lung location: unspecified part of lung Pneumonia type: due to unspecified organism (1) Pneumonia Laterality: bilateral Lung location: unspecified part of lung Pneumonia type: due to unspecified organism Qualified Code(s): J18.9 - Pneumonia, unspecified organism
[2021-05-31 08:03] LABS: BUN Creatinine Ratio 26.4 (10-20); C Reactive Protein 2.21 mg/dl (0-0.29); Calcium 9.2 mg/dl (8.5-10.1); Creatinine Clr Calc Pharmacy 104.4 ml/min; Est GFR (African American) 97.5 ml/min; Est GFR (Non-African American) 84.1 ml/min; Magnesium 2.7 mg/dl (1.8-2.4); Potassium 3.9 mmol/L (3.5-5.1)
[2021-05-31] MEDS: ENOXAPARIN INJ 40 MG/0.4 ML SYR SQ SCH ×2 (08:03→20:43)
[2021-05-31] MEDS: dexAMETHasone 6 MG in SYRINGE 0 ML IV SCH (08:05)
[2021-05-31] MEDS: FUROSEMIDE 20 MG in SYRINGE 0 ML IV SCH (08:07)
[2021-05-31] MEDS: INSULIN ASPART 100 UNITS/ML 3 ML PEN SC SCH ×4 (09:09→20:46)
[2021-05-31] MEDS: INSULIN GLARGINE SOLOSTAR 100 UNITS/ML 3 ML PEN SC SCH ×2 (09:44→20:44)
[2021-05-31] MEDS ORDERED: PHARMACY GLYCEMIC MGMT CONSULT PRN (14:12)
--- NOTE | 2021-05-31 14:23 | Pharmacy Report ---
Pharmacy Glycemic Short Note 2 - Date of Service May 31, 2021 - Glycemic Short BSG Results (Last 24 hours): 05/30/21 05/30/21 05/30/21 16:49 20:27 20:29 Glucose POC Glucose 322 H* 310 H* 310 H* 05/31/21 05/31/21 05/31/21 07:17 07:45 12:33 Glucose 206 H POC Glucose 183 H 256 H OUTPATIENT ANTIDIABETIC REGIMEN: * Glipizide * Metformin * A1c = 10.7% on 05/30/21 ASSESSMENT: * 51yo T2DM male with poor outpatient control per recent A1c. Goal A1c <7%. Likely insulin needed at DC to achieve goal A1c. * Pt with SEVERE hyperglycemia secondary to poorly controlled diabetes + illness + steroids * Hold oral agents use SQ basal bolus insulin regimen for inpatient use * Lantus + NovoLog for baseline control while PO agents on hold. Add NPH for dexamethasone hyperglycemia. Use weight based dosing for insulin naive + steroids. PLAN FOR INPATIENT GLYCEMIC CONTROL: * Hold outpatient oral diabetes medications * Basal insulin * Lantus 15 units SQ BID * Steroid induced hyperglycemia * NPH 15 units SQ x 1 dose now (this is ~ 1/2 dosing since DXM given this morning) * NPH 40 units (0.4 units/kg) SQ daily in AM with NPH * Bolus insulin * NovoLog per scale ACHS or Q6hrs while NPO * Goal Range: Low 100 mg/dL - High 140 mg/dL * Correction Factor: 15 mg/dL/unit * Nutritional / Prandial insulin per carb ratio of 1 unit per 5 grams CHO consumed PLAN FOR DISCHARGE: * Goal A1c <7%. Likely insulin needed at DC to achieve goal A1c. * A1c is greater than or equal to 10% --> consider triple therapy with me tformin + basal insulin + (GLP1-RA OR prandial insulin). May need to continue additional antidiabetic agent based on patient specific factors (efficacy, hypo risk, weight gain/loss, side effects, cost) * Recommend: * Continuing Metformin * DC Glipizide * Start basal insulin This will be based off of insurance coverage and patient preference * GLP1 vs bolus insulin (This will be based off of insurance coverage and patient preference) * Support Patient Self-Management o Healthy Lifestyle (diet, exercise, and smoking cessation) o Disease self-management (SMBG) o Prevention of complications (BP, Lipid goals, Immunizations) o Consider outpatient Diabetes Self-Management Education & Support
[2021-05-31] MEDS ORDERED: INSULIN HUMAN NPH SC SCH (16:30)
--- NOTE | 2021-05-31 16:32 | Hospitalist Progress Note ---
Date of Service May 31, 2021 Assessment & Plan (1) COVID-19: Plan: 51yo male presenting with Covid-19 PNA, hypoxic to 89% on room air. Patient is unvaccinated dexamethasone 6mg IV daily, day 3 responding well to Lasix 20mg IV daily, no longer has crackles in lungs eating well discussed with him laying prone or on his side for improvement in oxygen levels hoping to get him out after the weekend but warned him he might get worse before getting better -Lovenox 40mg BID -Albuterol HFA PRN SOB down to 2L from 3L, see if we can get him to room air tomorrow (2) Hypoxia: Plan: acute hypoxic respiratory failure, due to COVID 19 pneumonia down to 2L, wean as tolerated, give Lasix 20mg IV daily to keep lungs dry (3) DM2 (diabetes mellitus, type 2): Plan: [id number]. Last HgbA1c = 9.2. He is on oral therapy with Metformin and Glipizide hyperglycemic today consulted pharmacy for glycemic management with his dexamethasone use (4) Hyperlipidemia: Plan: Chronic. Stable -Continue Simvastatin 20mg po daily (5) Pneumonia: Plan: multifocal, due to COVID 19 Plan: F/E/N - heplock Ppx - Lovenox 40mg BID Code - Full Dispo -Admit to medical, Covid-19 unit Admission and Anticipated Discharge Date Admission Date: May 29, 2021 Subjective patient says he is feeling better, breathing easier, no cough eating fairly well, no diarrhea, no vomiting he is on 3L today, titrated down to 2L in evening CRP down to 2 from 6 which is good sign Cr is 1.0 and BUN 27, making a lot of urine with Lasix Review of Systems Review of Systems: All systems reviewed & are unremarkable except as noted in Subjective Physical Exam Physical Exam: General: well developed, well nourished, no acute distress, ill appearing, diaphoretic Neck: supple, trachea midline, normal thyroid Lungs: crackles in bases bilaterally, slightly tachypnic, no accessory muscle use, no distress Heart: regular S1 and S2, no murmur, peripheral pulses normal, capillary refill normal, no edema Abdomen: soft, NT, ND, + BS, no hepatomegaly, normal to percussion Extremities: normal in appearance, no cyanosis, no petechiae, strength is 5/5 bilaterally Neuro: awake, cooperative, moves all extremities, no focal motor deficits, CN II-XII intact, sensation in extremities intact, normal speech Skin: warm, dry, no rash, normal turgor Psych: Awake, alert oriented x 3, euthymic affect Results & Data Results & Data ([facility]) Vital Signs (Past 12 Hours) Vital Signs Temp Pulse Resp BP Pulse Ox 05/31/21 07:45 36.8 C 67 17 108/72 91 Laboratory Results Laboratory Results - last 24 hr 05/31/21 05/31/21 05/31/21 07:17 07:45 12:33 Sodium 137 Potassium 3.9 Chloride 103 Carbon Dioxide 28 Anion Gap 6.0 BUN 27 H D Creatinine 1.02 Est Cr Clr Drug Dosing 104.4 Est GFR ( Amer) 97.5 Est GFR (Non-Af Amer) 84.1 BUN/Creatinine Ratio 26.4 H Glucose 206 H POC Glucose 183 H 256 H Calcium 9.2 Magnesium 2.7 H C-Reactive Protein 2.21 H 05/31/21 05/31/21 17:40 20:41 Sodium Potassium Chloride Carbon Dioxide Anion Gap BUN Creatinine Est Cr Clr Drug Dosing Est GFR ( Amer) Est GFR (Non-Af Amer) BUN/Creatinine Ratio Glucose POC Glucose 261 H 233 H Calcium Magnesium C-Reactive Protein Medications Administered Current Inpatient Medications Albuterol (Albuterol Hfa 8 Gm Inhaler) 2 puffs INH Q4H PRN PRN Reason: shortness of breath Stop: 06/28/21 19:14 Dextrose (Dextrose 50% 50 Ml Syringe) 25 - 50 ml IV UD PRN; Protocol PRN Reason: Hypoglycemia Protocol Stop: 06/28/21 19:14 Enoxaparin Sodium (Enoxaparin Inj 40 Mg/0.4 Ml Syr) 40 mg SQ Q12H [facility] Stop: 06/28/21 19:59 Last Admin: 05/31/21 20:43 Dose: 40 mg Documented by: Glucagon (Glucagon For Inj 1 Mg Vial) 1 mg SQ UD PRN; Protocol PRN Reason: Hypoglycemia Protocol Stop: 06/28/21 19:14 Glucose (Glucose 10 Tabs/Tube) 4 - 8 tabs PO UD PRN; Protocol PRN Reason: Hypoglycemia Protocol Stop: 06/28/21 19:14 Glucose (Glucose 40% Gel 15 Gm Tube) 15 - 30 gm PO UD PRN; Protocol PRN Reason: Hypoglycemia Protocol Stop: 06/28/21 19:14 Dexamethasone 6 mg/ Syringe 1.5 mls @ 1 mls/min IV Q24H JONATHAN Stop: 06/29/21 08:59 Last Admin: 05/31/21 08:05 Dose: 1 mls/min Documented by: Furosemide 20 mg/ Syringe 2 mls @ 4 mls/min IV QAM JONATHAN Stop: 06/30/21 08:59 Last Admin: 05/31/21 08:07 Dose: 4 mls/min Documented by: Insulin Aspart (Insulin Aspart 100 Units/Ml 3 Ml Pen) 0 units SC ACHS JONATHAN Stop: 06/28/21 21:59 Last Admin: 05/31/21 20:46 Dose: 7 units Documented by: Insulin Glargine (Insulin Glargine Solostar 100 Units/Ml 3 Ml Pen) 15 units SC BID JONATHAN Stop: 06/29/21 20:59 Last Admin: 05/31/21 20:44 Dose: 15 units Documented by: Insulin Human NPH (Insulin Human Nph) 40 units SC DAILY JONATHAN; Protocol Stop: 07/01/21 08:59 Miscellaneous (Carbohydrates For Hypoglycemia ) 15 - 30 gm PO UD PRN PRN Reason: Hypoglycemia Protocol Stop: 06/28/21 19:14 Miscellaneous Information (Pharmacy Glycemic Mgmt Consult) 1 ea N/A UD PRN PRN Reason: Consult Stop: 06/30/21 14:11 Ondansetron HCl (Ondansetron Inj 2 Mg/Ml 2 Ml Vial) 4 mg IV Q6H PRN PRN Reason: Nausea Stop: 06/28/21 19:14 Simvastatin (Simvastatin 20 Mg Tab) 20 mg PO QPM JONATHAN Stop: 06/28/21 20:59 Last Admin: 05/30/21 21:06 Dose: 20 mg Documented by: PG Care Time/CCT Total # of Minutes Spent Total Time Spent with Patient: Total time spent is greater than 50% in coordination of care (as documented) at patient's floor/unit and/or counseling patient: Coding Level of Care Code 86965 Subseq Hosp Care Lvl 3 Diagnoses COVID-19 U07.1 Hypoxia R09.02 DM2 (diabetes mellitus, type 2) E11.9 Hyperlipidemia E78.5 Pneumonia J18.9 Laterality: bilateral Lung location: unspecified part of lung Pneumonia type: due to unspecified organism (1) Pneumonia Laterality: bilateral Lung location: unspecified part of lung Pneumonia type: due to unspecified organism Qualified Code(s): J18.9 - Pneumonia, unspecified organism
[2021-05-31] MEDS: SIMVASTATIN 20 MG TAB PO SCH (21:59)
[2021-06-01] MEDS: ENOXAPARIN INJ 40 MG/0.4 ML SYR SQ SCH (08:39)
[2021-06-01] MEDS: FUROSEMIDE 20 MG in SYRINGE 0 ML IV SCH (08:57)
[2021-06-01] MEDS: dexAMETHasone 6 MG in SYRINGE 0 ML IV SCH (08:58)
[2021-06-01] MEDS ORDERED: INSULIN GLARGINE SOLOSTAR 100 UNITS/ML 3 ML PEN SC SCH (09:00)
[2021-06-01] MEDS: INSULIN ASPART 100 UNITS/ML 3 ML PEN SC SCH ×2 (09:00→12:48)
[2021-06-01] MEDS ORDERED: INSULIN HUMAN NPH SC SCH ×2 (09:00)
--- NOTE | 2021-06-01 10:53 | Discharge Summary ---
Date of Service June 01, 2021 Admission HPI Per Admitting Provider José Ricci is a 51yo male presenting with Covid-19 infection. Patient began developing mild symptoms approximately 10 days ago - fever, NEELY and body aches. He is unvaccinated. Uncertain of exposure to Covid-19. Upon arrival he was saturating 89% on room air. Presently with no complaints. He denies chest pain, palpitations, abdominal pain, nausea, vomiting, diarrhea or constipation. ER course: Dexamethasone 6mg IV, Albuterol neb Principal Diagnosis COVID 19 pneumonia, acute hypoxia DM with hyperglycemia Discharge Exam General: well developed, well nourished, no acute distress, male Lungs: clear to auscultation bilaterally, normal respiratory effort, no accessory muscle use, no distress Heart: regular S1 and S2, no murmur, peripheral pulses normal, capillary refill normal, no edema Abdomen: soft, NT, ND, + BS, no hepatomegaly, normal to percussion Extremities: normal in appearance, no cyanosis, no petechiae, strength is 5/5 bilaterally Neuro: awake, cooperative, moves all extremities, no focal motor deficits, CN II-XII intact, sensation in extremities intact, normal speech Skin: warm, dry, no rash, normal turgor Psych: Awake, alert oriented x 3, euthymic affect Discharge Data Allergies Allergy/AdvReac Type Severity Reaction Status Date / Time acetaminophen AdvReac Unknown SOB Verified 05/29/21 11:39 Consultations 05/29/21 14:40 ED Decision to Admit Stat Hospital Course (1) COVID-19: 51yo male presenting with Covid-19 PNA, hypoxic to 89% on room air. Patie nt is unvaccinated dexamethasone 6mg IV daily, day 4 change to 6mg PO daily for 6 more days on discharge responding well to Lasix 20mg IV daily, no longer has crackles in bases of lungs eating well discussed with him laying prone, he slept all night on his stomach -Lovenox 40mg BID -Albuterol HFA PRN SOB down to room air at rest and on exertion, discharge to home with PCP follow up (2) Hypoxia: acute hypoxic respiratory failure, due to COVID 19 pneumonia down to room air at rest and on exertion (3) DM2 (diabetes mellitus, type 2): He is on oral therapy with Metformin and Glipizide at home HbA1c is > 10%, average sugars around 260 at home, obviously not at goal having hyperglycemia with dexamethasone plan for discharge: take NPH Insulin 40 units every morning with the dexamethasone even prior to this your HbA1c was too high, need to start on lantus 20 units daily can talk with PCP about other options, like GLP-1 inhibitor low carb diet (4) Hyperlipidemia: Chronic. Stable -Continue Simvastatin 20mg po daily (5) Pneumonia: multifocal, due to COVID 19 improving, off oxygen discharge home Total Time Total Time Spent Total Time Spent (In Minutes): 32 Total Time Includes: Examination of the Patient, Discharge Planning and Medication Reconciliation Discharge Plan Discharge Items Patient Disposition: Home - Self-Care Reason For Visit: COVID-19, HYPOXIA Discharge Diagnosis: COVID 19 Acute hypoxic respiratory failure Condition on Discharge: Good Goals: complete course of steroids stay well nourished, well hydrated, well rested at home need to be isolated 10 days from onset of symptoms Activity: Resume your previous activity Driving/Machine Use: Resume 1 day after discharge Weightbearing: Full weightbearing Non-emergency contact: Primary Care Provider Call non-emergency contact if: you have any medication questions, your symptoms worsen and you have a fever Follow-up/Referrals: Carole Pritchard MD [Primary Care Provider] - (one week) Diet: Carb Consistent or DM2 Addtl Attending Provider Instructions: Medications: - DEXAMETHASONE: steroid to treat COVID 19 pneumonia, take for 6 more days, next dose due tomorrow morning - NPH INSULIN: take in the morning with the dexamethasone, 40 units, this is intended to blunt the high sugars that the steroids will cause, will only take for 6 days - LANTUS: take 20 units every morning, you need to continue to take this buttermaker, see below COVID 19 pneumonia, acute hypoxia down to room air at rest and on exertion, feeling much better can discharge to home on dexamethasone for 6 more days stay well nourished, get plenty of rest but also be sure to sit up and take deep breaths during the day sleep on your stomach for the next week as it helps with oxygenation can take over the counter Zinc and Vitamin D for immune support Diabetes: your sugars are not well controlled, your Hemoglobin A1c is 10.7% which is way too high, goal is 7.0% continue your Metformin and Glipizide adding Lantus 20 units every morning as basal insulin to help with control you can talk with PCP about GLPK1 inhibitor as another option follow low carbohydrate diet while you are on dexamethasone you will take NPH insulin 40 units in the morning to help limit high sugars caused by steroids Pending Studies at Discharge: No Stand-Alone Forms: My [facility], Smoking Cessation Medications and DC Order Prescriptions: New Novolin N NPH U-100 Insulin 100 unit/mL Suspension 40 unit SC DAILY 6 Days Qty: 2.4 RF: 0 Lantus Solostar U-100 Insulin 100 unit/mL (3 mL) Insulin Pen 20 unit SC DAILY Qty: 15 RF: 0 dexamethasone 4 mg tablet 6 mg PO DAILY 6 Days Qty: 9 RF: 0 Continued (DME) OneTouch Ultra Blue Test Strip Strip See Dose Instructions .ROUTE .MEDSUPPLY Qty: 200 RF: 1 metformin 500 mg tablet extended release 24 hr 500 mg PO QPM Qty: 30 RF: 5 glipizide 10 mg tablet 10 mg PO DAILY Qty: 90 RF: 1 simvastatin 20 mg tablet 20 mg PO QPM Qty: 90 RF: 1 (DME) Diabetic Shoes Misc See Rx Instructions .ROUTE .MEDSUPPLY Qty: 1 RF: 0 multivitamin Tablet 1 tab PO DAILY RF: 0 acetaminophen [Tylenol Extra Strength] 500 mg Tablet 500 mg PO Q6H PRN (Reason: Pain) RF: 0 ascorbic acid (vitamin C) [Vitamin C] 250 mg Tablet 0 mg PO DAILY RF: 0 Discharge Orders: Discharge Order (Routine); Ordered 06/01/21 Ordered By: Desmond Kenyon Admission Data Admit Date/Time: 05/29/21 15:20 Attending Provider: Desmond Kenyon Admit Provider: Cyndy Latham Primary Care Provider: Carole Pritchard Other Providers: Cyndy Latham Coding Level of Care Code D/C DAY MANAGEMENT >30 MINS Diagnoses COVID-19 U07.1 Hypoxia R09.02 DM2 (diabetes mellitus, type 2) E11.9 Hyperlipidemia E78.5 Pneumonia J18.9 Laterality: bilateral Lung location: unspecified part of lung Pneumonia type: due to unspecified organism
== END 2021-06-01 13:53 | disposition home or self-care (01) | DRG 177 ==
LOC: ED 08:52 → 2S 15:20 → SUATTDRO 15:20 → 2S 18:46 → 3E 05-31 10:50